=== PATIENT | male | born 1955 | race Caucasian/White ===

== ENCOUNTER → 2023-09-02 | Day surgery (SDC) | payer BC ==
[~2023-09-02] MED LIST: Lidocaine 1% (PF) 30 ML VIAL ONE; PROPOFOL 200 MG/20 ML VIAL ONE
[2023-09-02 08:48] VITALS: BP 128/94; TEMP 97.7
== END ==
LOC: CSHSDC 08:00
PROVIDERS: ATTEND Specialist
PROC: 5A2204Z Restoration of Cardiac Rhythm, Single (ICD-10-PCS; principal; 2023-09-02)
DX: I48.0 Paroxysmal atrial fibrillation (principal); I35.1 Nonrheumatic aortic (valve) insufficiency; I10 Essential (primary) hypertension; Z79.899 Other long term (current) drug therapy; Z79.01 Long term (current) use of anticoagulants
CPT/HCPCS: 92960; 93005; 93010; J2001; J2704